=== PATIENT | female | born 1940 | race Caucasian/White ===

== ENCOUNTER 2018-05-18 14:24 | Inpatient (IN) | payer MEDICARE, BC ==
[~2018-05-18] VITALS: Ht 162.6 cm; Wt 59.0 kg
[2018-05-18 16:35] LABS: BASOPHILS % (AUTO) 0.1 % (0-1); EOSINOPHILS % (AUTO) 0 % (0-6); HEMATOCRIT 43.3 % (35.0-45.0); LYMPHOCYTES # (AUTO) 0.2 X10'3 (1.1-4.8); LYMPHOCYTES % (AUTO) 1.4 % (21-51); MEAN CORPUSCULAR HGB CONC 34.6 % (33.0-36.5); MEAN CORPUSCULAR VOLUME 95.4 FL (78-98); MEAN PLATELET VOLUME 7.4 FL (7.4-10.4); MONOCYTES # (AUTO) 0.4 X10'3 (0-0.9); MONOCYTES % (AUTO) 3.6 % (2-12); NEUTROPHILS # (AUTO) 10.3 X10'3 (1.8-7.7); NEUTROPHILS % (AUTO) 94.9 % (42-75); PLATELET COUNT 227 X10'3 (140-440); RED BLOOD COUNT 4.53 X10'6 (4.20-5.60); RED CELL DISTRIBUTION WIDTH 13.3 % (11.5-14.5); WHITE BLOOD COUNT 10.8 X10'3 (4.5-11.0)
[2018-05-18 16:49] LABS: PLATELET ESTIMATE NORMAL; TOTAL CELLS COUNTED 100
[2018-05-18 16:51] LABS: ALANINE AMINOTRANSFERASE 17 U/L (12-78); ALBUMIN 3.4 G/DL (3.4-5.0); ALKALINE PHOSPHATASE 79 IU/L (46-116); ANION GAP 8 (8-16); ASPARTATE AMINO TRANSFERASE 34 U/L (10-37); BLOOD UREA NITROGEN 29 MG/DL (7-18); BUN/CREATININE RATIO 24.4 (6.6-38.0); CALCIUM 8.9 MG/DL (8.5-10.1); CHLORIDE 98 MMOL/L (99-107); CREATININE 1.19 MG/DL (0.40-0.90); GLUCOSE 157 MG/DL (70-104); POTASSIUM 4.1 MMOL/L (3.5-5.1); SODIUM 133 MMOL/L (135-145); TOTAL CARBON DIOXIDE 27.2 MMOL/L (24-32); TOTAL PROTEIN 6.7 G/DL (6.4-8.2); eGFR 44 ML/MIN
[2018-05-18 17:13] LABS: MAGNESIUM 2.8 MG/DL (1.5-2.4)
[2018-05-18] MEDS ORDERED: bisacodyl 10mg suppository rectal RC STA (19:28)
[2018-05-18 20:21] LABS: CLARITY,URINE CLEAR (Clear); COLOR,URINE AMBER (Yellow); GLUCOSE, URINE 100 mg/dl (Neg); KETONES,URINE 15 mg/dl (Neg); LEUKOCYTE ESTERASE ,URINE NEGATIVE (Neg); NITRITES, URINE NEGATIVE (Neg); OCCULT BLOOD,URINE NEGATIVE (Neg); PH,URINE 5.5 (4.8-8.0); PROTEIN,URINE 30 mg/dl (Neg); UROBILINOGEN,URINE 0.2 E.U/dL (0.2-1.0)
[2018-05-18 20:27] LABS: UA COLLECTION TYPE STRAIGHT CATH
[2018-05-18 20:44] LABS: BACTERIA,URINE NONE SEEN /HPF (Neg); HYALINE CASTS 0-3 /LPF (NEGATIVE); MUCUS STRANDS MANY /LPF (Neg); RBC,URINE 0-2 /HPF (0-2); SQUAMOUS EPITHELIAL CELL,UR FEW /LPF (FEW); WBC,URINE 0-4 /HPF (0-4)
[2018-05-18] MEDS ORDERED: temazepam 15mg capsule PO PRN (21:00)
[2018-05-18] MEDS ORDERED: acetaminophen 325mg tablet PO PRN ×2 (21:40)
[2018-05-18] MEDS ORDERED: mag hydrox/Alum hydrox/simeth 30ml oral suspension PO PRN (21:40)
[2018-05-18] MEDS ORDERED: magnesium hydroxide 30ml (MOM) UD suspension PO PRN (21:40)
[2018-05-18] MEDS ORDERED: ondansetron/PF 4mg/2ml inj IV PRN (21:40)
[2018-05-18] MEDS ORDERED: HYDROcodone/acetaminophen 10/325mg tab PO PRN (21:40)
[2018-05-18] MEDS ORDERED: HYDROcodone/acetaminophen 5mg/325mg tablet PO PRN (21:40)
[2018-05-18] MEDS: enoxaparin 40mg/0.4ml syringe SUBCUT SCH (22:32)
[2018-05-18] MEDS: normal saline 1000ml 1,000 ML IV SCH (22:33)
[2018-05-18] MEDS: piperacillin/tazo 3.375gm/50ml 50 ML IV SCH (22:34)
[2018-05-18] MEDS ORDERED: CARB1TAB23 PO ×3 (22:54→23:04)
[2018-05-18] MEDS ORDERED: ENTA200T23 PO (22:54)
[2018-05-18] MEDS ORDERED: CALC-854 PO (23:04)
[2018-05-18] MEDS ORDERED: BISA-155 PO (23:04)
[2018-05-18] MEDS ORDERED: CYAN-19 PO (23:04)
[2018-05-18] MEDS ORDERED: POLY17PO10 PO (23:04)
[2018-05-19] VITALS (16 sets, daily range): BP systolic 114–158; BP diastolic 63–92
[2018-05-19] MEDS: diatr meglu/diatrizoate 30ml oral sol.-(3 dose) bottle PO SCH ×3 (00:39→08:43)
[2018-05-19] MEDS: carbidoba-levodopa 25-100mg tablet PO SCH ×6 (03:33→21:00)
[2018-05-19] MEDS: piperacillin/tazo 3.375gm/50ml 50 ML IV SCH ×3 (05:07→16:00)
[2018-05-19 06:01] LABS: BASOPHILS % (AUTO) 0.1 % (0-1); EOSINOPHILS % (AUTO) 0 % (0-6); HEMATOCRIT 42.2 % (35.0-45.0); HEMOGLOBIN 14.4 g/dl (12.0-16.0); LYMPHOCYTES # (AUTO) 0.4 X10'3 (1.1-4.8); LYMPHOCYTES % (AUTO) 2.9 % (21-51); MEAN CORPUSCULAR HEMOGLOBIN 32.6 PG (27.0-31.0); MEAN CORPUSCULAR HGB CONC 34.2 % (33.0-36.5); MEAN CORPUSCULAR VOLUME 95.6 FL (78-98); MEAN PLATELET VOLUME 8.7 FL (7.4-10.4); MONOCYTES # (AUTO) 0.6 X10'3 (0-0.9); MONOCYTES % (AUTO) 4.6 % (2-12); NEUTROPHILS # (AUTO) 12.5 X10'3 (1.8-7.7); NEUTROPHILS % (AUTO) 92.4 % (42-75); PLATELET COUNT 221 X10'3 (140-440); RED BLOOD COUNT 4.41 X10'6 (4.20-5.60); RED CELL DISTRIBUTION WIDTH 13.5 % (11.5-14.5); WHITE BLOOD COUNT 13.6 X10'3 (4.5-11.0)
[2018-05-19 06:19] LABS: ANION GAP 7 (8-16); BLOOD UREA NITROGEN 33 MG/DL (7-18); BUN/CREATININE RATIO 27.3 (6.6-38.0); CALCIUM 8.7 MG/DL (8.5-10.1); CHLORIDE 98 MMOL/L (99-107); CREATININE 1.21 MG/DL (0.40-0.90); GLUCOSE 110 MG/DL (70-104); POTASSIUM 4.4 MMOL/L (3.5-5.1); SODIUM 133 MMOL/L (135-145); TOTAL CARBON DIOXIDE 27.7 MMOL/L (24-32); eGFR 43 ML/MIN
[2018-05-19] MEDS ORDERED: diatr meglu/diatrizoate 30ml oral sol.-(3 dose) bottle PO SCH (07:00)
[2018-05-19] MEDS: enoxaparin 40mg/0.4ml syringe SUBCUT SCH (07:51)
[2018-05-19 09:38] LABS: PLATELET ESTIMATE NORMAL; TOTAL CELLS COUNTED 100; TOXIC GRANULATION 1+
[2018-05-19] MEDS: normal saline 1000ml 1,000 ML IV SCH (10:57)
[2018-05-19 14:07] LABS: INR 1.2 INR; PARTIAL THROMBOPLASTIN TIME 38 SECONDS (22-32); PROTHROMBIN TIME 12.1 SECONDS (9.0-12.0)
[2018-05-19] MEDS ORDERED: sevoflurane 250ml liquid IH ONE (16:32)
[2018-05-19] MEDS ORDERED: propofol inj 20 ML IV ONE (16:33)
[2018-05-19] MEDS ORDERED: fentaNYL /PF 50mcg/ml 5ml ampule ONE (16:33)
[2018-05-19] MEDS ORDERED: rocuronium 10mg/ml inj IV ONE (16:34)
[2018-05-19] MEDS ORDERED: ROPIVAcaine 0.5% (5mg/ml) 30ml vial ONE (17:04)
[2018-05-19] MEDS ORDERED: neostigmine methylsulfate 1 MG/ML 10ml vial ONE (17:56)
[2018-05-19] MEDS ORDERED: glycopyrrolate 0.2mg/ml inj ONE (17:56)
[2018-05-19] MEDS ORDERED: meperidine/PF 25mg/ml syringe IV PRN ×3 (18:05)
[2018-05-19] MEDS ORDERED: ringers solution, lacted 1,000 ML IV SCH (18:05)
[2018-05-19] MEDS ORDERED: morphine 4 MG/ML inj SYRINge IV PRN ×2 (18:05)
[2018-05-19] MEDS ORDERED: ondansetron/PF 4mg/2ml inj IV PRN (18:05)
[2018-05-19] MEDS ORDERED: proCHLORperazine 10 MG/2 ml inj IV PRN (18:05)
[2018-05-19] MEDS ORDERED: CADD PCA waste documentation MC PRN (18:20)
[2018-05-19] MEDS ORDERED: naloxone 0.4 mg/ml inj IV PRN (18:20)
[2018-05-19] MEDS: HYDROmorphone/NS 1 mg/ml CADD 50 ML IV SCH ×4 (19:00→23:00)
[2018-05-19] MEDS: lactobacillus rhamnosus 10,000 MMU CELLS/CAPSULE PO SCH (20:00)
[2018-05-19] MEDS: heparin, porcine 5000 units/ml vial SQ SCH (21:15)
[2018-05-20] VITALS (8 sets, daily range): BP systolic 102–123; BP diastolic 62–82
[2018-05-20] MEDS: piperacillin/tazo 3.375gm/50ml 50 ML IV SCH ×4 (00:39→23:56)
[2018-05-20] MEDS: normal saline 1000ml 1,000 ML IV SCH ×4 (00:46→16:41)
[2018-05-20] MEDS: HYDROmorphone/NS 1 mg/ml CADD 50 ML IV SCH ×12 (01:00→23:00)
[2018-05-20] MEDS: carbidoba-levodopa 25-100mg tablet PO SCH ×9 (03:00→23:56)
[2018-05-20 05:18] LABS: BASOPHILS % (AUTO) 0 % (0-1); EOSINOPHILS % (AUTO) 0.1 % (0-6); HEMATOCRIT 43.9 % (35.0-45.0); HEMOGLOBIN 14.9 g/dl (12.0-16.0); LYMPHOCYTES # (AUTO) 0.3 X10'3 (1.1-4.8); LYMPHOCYTES % (AUTO) 7.5 % (21-51); MEAN CORPUSCULAR HEMOGLOBIN 32.6 PG (27.0-31.0); MEAN CORPUSCULAR HGB CONC 33.9 % (33.0-36.5); MEAN CORPUSCULAR VOLUME 96.4 FL (78-98); MEAN PLATELET VOLUME 8.4 FL (7.4-10.4); MONOCYTES # (AUTO) 0.2 X10'3 (0-0.9); NEUTROPHILS # (AUTO) 3.7 X10'3 (1.8-7.7); NEUTROPHILS % (AUTO) 88.4 % (42-75); PLATELET COUNT 198 X10'3 (140-440); RED BLOOD COUNT 4.56 X10'6 (4.20-5.60); RED CELL DISTRIBUTION WIDTH 13.6 % (11.5-14.5); WHITE BLOOD COUNT 4.2 X10'3 (4.5-11.0)
[2018-05-20 05:47] LABS: ALBUMIN 2.1 G/DL (3.4-5.0); ANION GAP 8 (8-16); BLOOD UREA NITROGEN 40 MG/DL (7-18); BUN/CREATININE RATIO 27.2 (6.6-38.0); CALCIUM 8.2 MG/DL (8.5-10.1); CHLORIDE 99 MMOL/L (99-107); CREATININE 1.47 MG/DL (0.40-0.90); GLUCOSE 116 MG/DL (70-104); POTASSIUM 4.7 MMOL/L (3.5-5.1); SODIUM 134 MMOL/L (135-145); TOTAL CARBON DIOXIDE 26.6 MMOL/L (24-32); eGFR 35 ML/MIN
[2018-05-20] MEDS ORDERED: potassium Cl 20 mEq SR tablet PO PRN (08:40)
[2018-05-20] MEDS ORDERED: magnesium 4gm in 100ml NS 100 ML IV PRN (08:40)
[2018-05-20] MEDS ORDERED: albuterol 1.25 MG/3 ML (1/2 strength) nebule NEB PRN (08:40)
[2018-05-20] MEDS ORDERED: potassium Cl 40MEQ/NS 500ml 500 ML IV PRN ×2 (08:40)
[2018-05-20] MEDS ORDERED: magnesium 1gm/100ml D5W IVPB 100 ML IV PRN (08:40)
[2018-05-20] MEDS ORDERED: magnesium Cl slow-release 64mg tablet PO PRN (08:40)
[2018-05-20] MEDS ORDERED: normal saline 500ml IV soln 500 ML IV ONE (08:55)
[2018-05-20] MEDS: lactobacillus rhamnosus 10,000 MMU CELLS/CAPSULE PO SCH ×2 (09:03→20:17)
[2018-05-20] MEDS: heparin, porcine 5000 units/ml vial SQ SCH ×2 (09:04→20:17)
[2018-05-20] MEDS ORDERED: normal saline 1000ml 1,000 ML IV ONE (14:55)
[2018-05-20] MEDS ORDERED: temazepam 15mg capsule PO PRN (21:00)
[2018-05-21] VITALS: BP 120/68
[2018-05-21] MEDS: HYDROmorphone/NS 1 mg/ml CADD 50 ML IV SCH ×12 (01:00→23:00)
[2018-05-21] MEDS: normal saline 1000ml 1,000 ML IV SCH ×2 (01:51→03:31)
[2018-05-21] MEDS: carbidoba-levodopa 25-100mg tablet PO SCH ×6 (03:30→19:12)
[2018-05-21 04:55] LABS: BASOPHILS % (AUTO) 0.5 % (0-1); EOSINOPHILS # (AUTO) 0.1 X10'3 (0-0.9); HEMATOCRIT 35.9 % (35.0-45.0); HEMOGLOBIN 12.1 g/dl (12.0-16.0); LYMPHOCYTES # (AUTO) 0.4 X10'3 (1.1-4.8); LYMPHOCYTES % (AUTO) 9.1 % (21-51); MEAN CORPUSCULAR HEMOGLOBIN 32.5 PG (27.0-31.0); MEAN CORPUSCULAR HGB CONC 33.8 % (33.0-36.5); MEAN CORPUSCULAR VOLUME 96.3 FL (78-98); MEAN PLATELET VOLUME 7.8 FL (7.4-10.4); MONOCYTES # (AUTO) 0.3 X10'3 (0-0.9); NEUTROPHILS # (AUTO) 3.4 X10'3 (1.8-7.7); NEUTROPHILS % (AUTO) 80.4 % (42-75); PLATELET COUNT 183 X10'3 (140-440); RED BLOOD COUNT 3.73 X10'6 (4.20-5.60); RED CELL DISTRIBUTION WIDTH 13.9 % (11.5-14.5); WHITE BLOOD COUNT 4.2 X10'3 (4.5-11.0)
[2018-05-21 05:16] LABS: ANION GAP 8 (8-16); BLOOD UREA NITROGEN 38 MG/DL (7-18); BUN/CREATININE RATIO 27.7 (6.6-38.0); CALCIUM 8.1 MG/DL (8.5-10.1); CHLORIDE 103 MMOL/L (99-107); CREATININE 1.37 MG/DL (0.40-0.90); GLUCOSE 81 MG/DL (70-104); MAGNESIUM 2.6 MG/DL (1.5-2.4); POTASSIUM 3.6 MMOL/L (3.5-5.1); SODIUM 138 MMOL/L (135-145); TOTAL CARBON DIOXIDE 27.5 MMOL/L (24-32); eGFR 37 ML/MIN
[2018-05-21 07:16] VITALS: BP 125/68
[2018-05-21] MEDS: K and/or MAG REPLACEMENT MC SCH (07:46)
[2018-05-21] MEDS: heparin, porcine 5000 units/ml vial SQ SCH ×2 (08:01→19:13)
[2018-05-21] MEDS: piperacillin/tazo 3.375gm/50ml 50 ML IV SCH ×2 (08:01→16:11)
[2018-05-21] MEDS: lactobacillus rhamnosus 10,000 MMU CELLS/CAPSULE PO SCH ×2 (08:01→19:12)
[2018-05-21] MEDS ORDERED: bisacodyl 5mg tablet.DR PO PRN (08:10)
[2018-05-21] MEDS: sodium chloride 0.45% 1,000 ML IV SCH ×3 (08:13→20:22)
[2018-05-21] MEDS: calcium carbonate/vitamin D3 tablet PO SCH ×2 (08:21→19:13)
[2018-05-21] MEDS: cyanocobalamin 500mcg tablet PO SCH (08:22)
[2018-05-21 11:30] VITALS: BP 129/69
[2018-05-21 20:00] VITALS: BP 135/76
[2018-05-22] VITALS: BP 134/78
[2018-05-22] MEDS: carbidoba-levodopa 25-100mg tablet PO SCH ×7 (00:03→23:18)
[2018-05-22] MEDS: piperacillin/tazo 3.375gm/50ml 50 ML IV SCH ×3 (00:05→15:52)
[2018-05-22] MEDS: HYDROmorphone/NS 1 mg/ml CADD 50 ML IV SCH ×12 (01:00→23:00)
[2018-05-22 05:15] LABS: BASOPHILS % (AUTO) 0.1 % (0-1); EOSINOPHILS # (AUTO) 0.1 X10'3 (0-0.9); HEMATOCRIT 31.1 % (35.0-45.0); HEMOGLOBIN 10.5 g/dl (12.0-16.0); LYMPHOCYTES # (AUTO) 0.4 X10'3 (1.1-4.8); LYMPHOCYTES % (AUTO) 9.1 % (21-51); MEAN CORPUSCULAR HEMOGLOBIN 32.4 PG (27.0-31.0); MEAN CORPUSCULAR HGB CONC 33.9 % (33.0-36.5); MEAN CORPUSCULAR VOLUME 95.5 FL (78-98); MEAN PLATELET VOLUME 7.5 FL (7.4-10.4); MONOCYTES # (AUTO) 0.4 X10'3 (0-0.9); MONOCYTES % (AUTO) 9.6 % (2-12); NEUTROPHILS # (AUTO) 3.4 X10'3 (1.8-7.7); NEUTROPHILS % (AUTO) 79.2 % (42-75); PLATELET COUNT 163 X10'3 (140-440); RED BLOOD COUNT 3.25 X10'6 (4.20-5.60); RED CELL DISTRIBUTION WIDTH 13.2 % (11.5-14.5); WHITE BLOOD COUNT 4.2 X10'3 (4.5-11.0)
[2018-05-22 05:38] LABS: ALBUMIN 1.8 G/DL (3.4-5.0); ANION GAP 8 (8-16); BLOOD UREA NITROGEN 25 MG/DL (7-18); BUN/CREATININE RATIO 23.4 (6.6-38.0); CALCIUM 7.7 MG/DL (8.5-10.1); CHLORIDE 103 MMOL/L (99-107); CREATININE 1.07 MG/DL (0.40-0.90); GLUCOSE 100 MG/DL (70-104); MAGNESIUM 2.1 MG/DL (1.5-2.4); POTASSIUM 3.4 MMOL/L (3.5-5.1); SODIUM 138 MMOL/L (135-145); TOTAL CARBON DIOXIDE 27.2 MMOL/L (24-32); eGFR 50 ML/MIN
[2018-05-22 07:00] VITALS: BP 113/56
[2018-05-22] MEDS: cyanocobalamin 500mcg tablet PO SCH (07:27)
[2018-05-22] MEDS: lactobacillus rhamnosus 10,000 MMU CELLS/CAPSULE PO SCH ×2 (07:28→19:12)
[2018-05-22] MEDS: heparin, porcine 5000 units/ml vial SQ SCH ×2 (07:29→19:13)
[2018-05-22] MEDS: calcium carbonate/vitamin D3 tablet PO SCH ×2 (07:29→19:12)
[2018-05-22] MEDS: sodium chloride 0.45% 1,000 ML IV SCH ×2 (07:30→19:11)
[2018-05-22] MEDS: potassium Cl 20 mEq SR tablet PO PRN ×3 (07:30→15:51)
[2018-05-22] MEDS ORDERED: magnesium hydroxide 30ml (MOM) UD suspension PO ONE (07:50)
[2018-05-22] MEDS: K and/or MAG REPLACEMENT MC SCH (08:00)
[2018-05-22 11:00] VITALS: BP_SYST 123; BP_SYST 131; BP_DIAS 67; BP_DIAS 75
[2018-05-22 20:00] VITALS: BP 121/68
[2018-05-23] VITALS: BP 137/71
[2018-05-23] MEDS: piperacillin/tazo 3.375gm/50ml 50 ML IV SCH ×4 (00:23→23:05)
[2018-05-23] MEDS: HYDROmorphone/NS 1 mg/ml CADD 50 ML IV SCH ×10 (01:00→19:00)
[2018-05-23] MEDS: carbidoba-levodopa 25-100mg tablet PO SCH ×6 (03:07→23:05)
[2018-05-23 05:25] LABS: BASOPHILS % (AUTO) 0.3 % (0-1); EOSINOPHILS # (AUTO) 0.1 X10'3 (0-0.9); EOSINOPHILS % (AUTO) 2.6 % (0-6); HEMATOCRIT 31.1 % (35.0-45.0); HEMOGLOBIN 10.6 g/dl (12.0-16.0); LYMPHOCYTES # (AUTO) 0.5 X10'3 (1.1-4.8); LYMPHOCYTES % (AUTO) 14.4 % (21-51); MEAN CORPUSCULAR HEMOGLOBIN 32.6 PG (27.0-31.0); MEAN CORPUSCULAR VOLUME 95.9 FL (78-98); MEAN PLATELET VOLUME 7.7 FL (7.4-10.4); MONOCYTES # (AUTO) 0.4 X10'3 (0-0.9); MONOCYTES % (AUTO) 12.6 % (2-12); NEUTROPHILS # (AUTO) 2.4 X10'3 (1.8-7.7); NEUTROPHILS % (AUTO) 70.1 % (42-75); PLATELET COUNT 164 X10'3 (140-440); RED BLOOD COUNT 3.24 X10'6 (4.20-5.60); RED CELL DISTRIBUTION WIDTH 13.3 % (11.5-14.5); WHITE BLOOD COUNT 3.5 X10'3 (4.5-11.0)
[2018-05-23 05:50] LABS: ALBUMIN 1.8 G/DL (3.4-5.0); ANION GAP 7 (8-16); BLOOD UREA NITROGEN 17 MG/DL (7-18); CHLORIDE 102 MMOL/L (99-107); GLUCOSE 113 MG/DL (70-104); MAGNESIUM 1.8 MG/DL (1.5-2.4); POTASSIUM 4.1 MMOL/L (3.5-5.1); SODIUM 136 MMOL/L (135-145); TOTAL CARBON DIOXIDE 27.5 MMOL/L (24-32); eGFR 54 ML/MIN
[2018-05-23 07:29] VITALS: BP 135/67
[2018-05-23] MEDS: lactobacillus rhamnosus 10,000 MMU CELLS/CAPSULE PO SCH ×2 (07:50→19:33)
[2018-05-23] MEDS: calcium carbonate/vitamin D3 tablet PO SCH ×2 (07:50→19:34)
[2018-05-23] MEDS: cyanocobalamin 500mcg tablet PO SCH (07:51)
[2018-05-23] MEDS: heparin, porcine 5000 units/ml vial SQ SCH ×2 (07:55→19:34)
[2018-05-23] MEDS: K and/or MAG REPLACEMENT MC SCH (08:00)
[2018-05-23] MEDS: sodium chloride 0.45% 1,000 ML IV SCH (09:30)
[2018-05-23 11:00] VITALS: BP 117/63
[2018-05-23 18:00] VITALS: BP 147/75
[2018-05-23] MEDS ORDERED: furosemide 20 MG/2 ML vial IV ONE (19:05)
[2018-05-24] VITALS: BP 117/72
[2018-05-24] MEDS: carbidoba-levodopa 25-100mg tablet PO SCH ×6 (03:06→23:43)
[2018-05-24] MEDS: calcium carbonate/vitamin D3 tablet PO SCH ×2 (07:03→20:01)
[2018-05-24] MEDS: cyanocobalamin 500mcg tablet PO SCH (07:04)
[2018-05-24] MEDS: heparin, porcine 5000 units/ml vial SQ SCH ×2 (07:04→20:02)
[2018-05-24] MEDS: lactobacillus rhamnosus 10,000 MMU CELLS/CAPSULE PO SCH ×2 (07:04→20:01)
[2018-05-24 07:05] VITALS: BP 126/71
[2018-05-24] MEDS: piperacillin/tazo 3.375gm/50ml 50 ML IV SCH ×2 (07:10→16:11)
[2018-05-24] MEDS: K and/or MAG REPLACEMENT MC SCH (08:00)
[2018-05-24] MEDS ORDERED: potassium Cl 40MEQ/NS 500ml 500 ML IV PRN ×2 (08:15)
[2018-05-24] MEDS ORDERED: magnesium 1gm/100ml D5W IVPB 100 ML IV PRN (08:15)
[2018-05-24] MEDS ORDERED: magnesium Cl slow-release 64mg tablet PO PRN (08:15)
[2018-05-24] MEDS ORDERED: potassium Cl 20 mEq SR tablet PO PRN ×2 (08:15)
[2018-05-24] MEDS ORDERED: magnesium 4gm in 100ml NS 100 ML IV PRN (08:15)
[2018-05-24 12:02] VITALS: BP 126/72
[2018-05-24] MEDS ORDERED: magnesium hydroxide 30ml (MOM) UD suspension PO ONE (13:35)
[2018-05-24 18:30] VITALS: BP 135/76
[2018-05-25] VITALS: BP 139/71
[2018-05-25] MEDS: piperacillin/tazo 3.375gm/50ml 50 ML IV SCH (00:03)
[2018-05-25] MEDS: carbidoba-levodopa 25-100mg tablet PO SCH ×6 (02:40→23:03)
[2018-05-25 05:30] LABS: ALBUMIN 1.9 G/DL (3.4-5.0); ANION GAP 4 (8-16); BLOOD UREA NITROGEN 14 MG/DL (7-18); BUN/CREATININE RATIO 12.6 (6.6-38.0); CALCIUM 7.9 MG/DL (8.5-10.1); CHLORIDE 102 MMOL/L (99-107); CREATININE 1.11 MG/DL (0.40-0.90); GLUCOSE 99 MG/DL (70-104); MAGNESIUM 2.4 MG/DL (1.5-2.4); POTASSIUM 4.1 MMOL/L (3.5-5.1); SODIUM 134 MMOL/L (135-145); TOTAL CARBON DIOXIDE 28.4 MMOL/L (24-32); eGFR 48 ML/MIN
[2018-05-25 05:35] LABS: BASOPHILS % (AUTO) 0.2 % (0-1); EOSINOPHILS # (AUTO) 0.3 X10'3 (0-0.9); EOSINOPHILS % (AUTO) 4.2 % (0-6); HEMATOCRIT 34.1 % (35.0-45.0); HEMOGLOBIN 11.9 g/dl (12.0-16.0); LYMPHOCYTES # (AUTO) 0.7 X10'3 (1.1-4.8); LYMPHOCYTES % (AUTO) 11.9 % (21-51); MEAN CORPUSCULAR HEMOGLOBIN 33.4 PG (27.0-31.0); MEAN CORPUSCULAR HGB CONC 34.9 % (33.0-36.5); MEAN CORPUSCULAR VOLUME 95.8 FL (78-98); MONOCYTES # (AUTO) 0.7 X10'3 (0-0.9); NEUTROPHILS # (AUTO) 4.3 X10'3 (1.8-7.7); NEUTROPHILS % (AUTO) 72.7 % (42-75); PLATELET COUNT 217 X10'3 (140-440); RED BLOOD COUNT 3.56 X10'6 (4.20-5.60); RED CELL DISTRIBUTION WIDTH 12.2 % (11.5-14.5)
[2018-05-25] MEDS: lactobacillus rhamnosus 10,000 MMU CELLS/CAPSULE PO SCH ×2 (07:15→19:26)
[2018-05-25] MEDS: cyanocobalamin 500mcg tablet PO SCH (07:15)
[2018-05-25] MEDS: calcium carbonate/vitamin D3 tablet PO SCH ×2 (07:16→19:26)
[2018-05-25] MEDS: heparin, porcine 5000 units/ml vial SQ SCH ×2 (07:16→19:27)
[2018-05-25 08:00] VITALS: BP 102/57
[2018-05-25] MEDS: K and/or MAG REPLACEMENT MC SCH (08:00)
[2018-05-25 11:00] VITALS: BP 100/61
[2018-05-25 20:00] VITALS: BP 117/62
[2018-05-26] VITALS: BP 120/62
[2018-05-26] MEDS: carbidoba-levodopa 25-100mg tablet PO SCH ×3 (03:16→11:04)
[2018-05-26 06:51] LABS: BASOPHILS % (AUTO) 0.2 % (0-1); EOSINOPHILS # (AUTO) 0.2 X10'3 (0-0.9); EOSINOPHILS % (AUTO) 5.5 % (0-6); HEMOGLOBIN 10.6 g/dl (12.0-16.0); LYMPHOCYTES # (AUTO) 0.8 X10'3 (1.1-4.8); LYMPHOCYTES % (AUTO) 21.4 % (21-51); MEAN CORPUSCULAR HGB CONC 34.2 % (33.0-36.5); MEAN CORPUSCULAR VOLUME 96.3 FL (78-98); MEAN PLATELET VOLUME 7.7 FL (7.4-10.4); MONOCYTES # (AUTO) 0.4 X10'3 (0-0.9); MONOCYTES % (AUTO) 10.8 % (2-12); NEUTROPHILS # (AUTO) 2.3 X10'3 (1.8-7.7); NEUTROPHILS % (AUTO) 62.1 % (42-75); PLATELET COUNT 244 X10'3 (140-440); RED BLOOD COUNT 3.22 X10'6 (4.20-5.60); RED CELL DISTRIBUTION WIDTH 12.4 % (11.5-14.5); WHITE BLOOD COUNT 3.7 X10'3 (4.5-11.0)
[2018-05-26 07:01] LABS: ANION GAP 5 (8-16); BLOOD UREA NITROGEN 10 MG/DL (7-18); BUN/CREATININE RATIO 10.9 (6.6-38.0); CALCIUM 8.1 MG/DL (8.5-10.1); CHLORIDE 103 MMOL/L (99-107); CREATININE 0.92 MG/DL (0.40-0.90); GLUCOSE 90 MG/DL (70-104); MAGNESIUM 1.9 MG/DL (1.5-2.4); POTASSIUM 3.9 MMOL/L (3.5-5.1); SODIUM 135 MMOL/L (135-145); TOTAL CARBON DIOXIDE 26.8 MMOL/L (24-32); eGFR 59 ML/MIN
[2018-05-26] MEDS: cyanocobalamin 500mcg tablet PO SCH (07:26)
[2018-05-26] MEDS: calcium carbonate/vitamin D3 tablet PO SCH (07:27)
[2018-05-26] MEDS: heparin, porcine 5000 units/ml vial SQ SCH (07:30)
[2018-05-26] MEDS: K and/or MAG REPLACEMENT MC SCH (07:35)
[2018-05-26] MEDS: lactobacillus rhamnosus 10,000 MMU CELLS/CAPSULE PO SCH (07:38)
[2018-05-26 08:05] VITALS: BP 119/64
[2018-05-26 11:00] VITALS: BP 133/68
== END 2018-05-26 13:05 | DRG 853 ==
LOC: ER 14:25 → ED HOLD 21:37 → SUR 3N 05-19 02:05
PROVIDERS: ADMIT Hospitalist; ATTEND Internal Medicine
PROC: 0D1M0Z4 Bypass Descending Colon to Cutaneous, Open Approach (ICD-10-PCS; 2018-05-19)
PROC: 0DTN0ZZ Resection of Sigmoid Colon, Open Approach (ICD-10-PCS; principal; 2018-05-19 16:32)
DX: A41.9 Sepsis, unspecified organism (principal); K56.2 Volvulus; K46.0 Unspecified abdominal hernia with obstruction, without gangrene; E87.1 Hypo-osmolality and hyponatremia; N17.9 Acute kidney failure, unspecified; K55.9 Vascular disorder of intestine, unspecified; E83.41 Hypermagnesemia; G20 Parkinson's disease; K90.0 Celiac disease; E86.0 Dehydration; M81.0 Age-related osteoporosis without current pathological fracture; R33.9 Retention of urine, unspecified; D72.819 Decreased white blood cell count, unspecified; E83.42 Hypomagnesemia; Z60.2 Problems related to living alone; Z66 Do not resuscitate; Z90.5 Acquired absence of kidney; Z90.710 Acquired absence of both cervix and uterus; Z79.899 Other long term (current) drug therapy
CPT/HCPCS: 36415; 71045; 74018; 74150; 74176; 80048; 80053; 81001; 83605; 83735; 85025; 85610; 85730; 87040; 87070; 88307; 94640; 94760; 99285; A4353; A4421; A6255; A7000; C1758; J1170; J1644; J1650; J1940; J2175; J2405; J2543; J2704; J2710; J2795; J3010; J3490; J7030; J7120; Q9963

== ENCOUNTER 2019-06-27 18:02 | Inpatient (IN) | payer MEDICARE, BC ==
[~2019-06-27] VITALS: Ht 162.6 cm; Wt 64.1 kg
[2019-06-27 18:00] VITALS: BP 98/58
[~2019-06-27 18:02] MED LIST: BISA-155 PO; CALC-854 PO; CARB1TAB23 PO; CYAN100019 PO; ENTA200T23 PO; POLY17PO10 PO
[2019-06-27] MEDS ORDERED: morphine 2 MG/ML inj. syringe IV PRN (19:00)
[2019-06-27] MEDS ORDERED: acetaminophen 325mg tablet PO PRN (19:00)
[2019-06-27] MEDS ORDERED: mag hydrox/Alum hydrox/simeth 30ml oral suspension PO PRN (19:00)
[2019-06-27] MEDS ORDERED: ondansetron/PF 4mg/2ml inj IV PRN (19:00)
[2019-06-27] MEDS ORDERED: magnesium hydroxide 30ml (MOM) UD suspension PO PRN (19:00)
[2019-06-27] MEDS: heparin, porcine 5000 units/ml vial SQ SCH (21:47)
[2019-06-27] MEDS: potassium Cl 20mEq in NS 1,000 ML IV SCH (21:47)
[2019-06-28] VITALS (18 sets, daily range): BP systolic 98–177; BP diastolic 46–87
[2019-06-28] MEDS: potassium Cl 20mEq in NS 1,000 ML IV SCH ×3 (04:57→16:33)
[2019-06-28 05:42] LABS: EOSINOPHILS # (AUTO) 0.1 X10'3 (0-0.9); EOSINOPHILS % (AUTO) 3.7 % (0-6); HEMATOCRIT 38.3 % (35.0-45.0); HEMOGLOBIN 12.7 g/dl (12.0-16.0); LYMPHOCYTES # (AUTO) 0.6 X10'3 (1.1-4.8); LYMPHOCYTES % (AUTO) 18.4 % (21-51); MEAN CORPUSCULAR HEMOGLOBIN 32.2 PG (27.0-31.0); MEAN CORPUSCULAR HGB CONC 33.2 g/dL (33.0-36.5); MEAN CORPUSCULAR VOLUME 96.9 FL (78-98); MEAN PLATELET VOLUME 7.8 FL (7.4-10.4); MONOCYTES # (AUTO) 0.4 X10'3 (0-0.9); MONOCYTES % (AUTO) 11.3 % (2-12); NEUTROPHILS # (AUTO) 2.1 X10'3 (1.8-7.7); NEUTROPHILS % (AUTO) 65.6 % (42-75); PLATELET COUNT 262 X10'3 (140-440); RED BLOOD COUNT 3.95 X10'6 (4.20-5.60); RED CELL DISTRIBUTION WIDTH 13.8 % (11.5-14.5); WHITE BLOOD COUNT 3.3 X10'3 (4.5-11.0)
[2019-06-28 05:54] LABS: ALBUMIN 2.8 G/DL (3.4-5.0); ANION GAP 10 (8-16); BLOOD UREA NITROGEN 12 MG/DL (7-18); BUN/CREATININE RATIO 15.2 (6.6-38.0); CALCIUM 8.1 MG/DL (8.5-10.1); CHLORIDE 101 MMOL/L (99-107); CREATININE 0.79 MG/DL (0.40-0.90); GLUCOSE 91 MG/DL (70-104); POTASSIUM 3.7 MMOL/L (3.5-5.1); SODIUM 136 MMOL/L (135-145); eGFR 71 ML/MIN
--- NOTE | 2019-06-28 06:30 | NUR ---
Problems reprioritized. Patient report given, questions answered & plan of care reviewed with Eladio MALAVE.
--- NOTE | 2019-06-28 06:37 | NUR ---
Patient in room [facility]. I have received report from Page MALAVE and had the opportunity to ask questions and assume patient care.
[2019-06-28] MEDS: heparin, porcine 5000 units/ml vial SQ SCH ×2 (08:00→19:53)
[2019-06-28] MEDS ORDERED: BUPIVAcaine/PF 2.5 mg/ml (0.25%) 30ml vial ONE (08:15)
[2019-06-28] MEDS ORDERED: LIDOcaine 1% 30ml preserv. free vial ONE (08:15)
[2019-06-28 08:25] LABS: PARTIAL THROMBOPLASTIN TIME 29 SECONDS (22-32)
[2019-06-28] MEDS: carbidoba-levodopa 25-100mg tablet PO SCH ×5 (08:28→23:10)
--- NOTE | 2019-06-28 08:36 | NUR ---
Sinemet given with sips of water per Dr. Parsons instruction
--- NOTE | 2019-06-28 08:40 | NUR ---
Report given to the OR charge nurse over the phone
[2019-06-28] MEDS ORDERED: sevoflurane 250ml liquid IH ONE (09:06)
[2019-06-28] MEDS ORDERED: fentaNYL/PF 50MCG/1 ML 2ML syringe ONE ×2 (09:10→09:49)
[2019-06-28] MEDS ORDERED: ceFOXitin 2 GM ADDVANTGE BAG 50 ML IV ONE (09:11)
[2019-06-28] MEDS ORDERED: ketamine 50mg/5ml syringe ONE (09:38)
[2019-06-28] MEDS ORDERED: glycopyrrolate 0.2mg/ml inj ONE (09:51)
[2019-06-28] MEDS ORDERED: dexamethasone sod phosphate 4mg/ml inj. ONE (09:51)
[2019-06-28] MEDS ORDERED: neostigmine methylsulfate 1 MG/ML 10ml vial ONE (09:51)
[2019-06-28] MEDS ORDERED: ondansetron/PF 4mg/2ml inj ONE (09:51)
[2019-06-28] MEDS ORDERED: propofol inj 20 ML IV ONE (09:51)
[2019-06-28] MEDS ORDERED: LIDOcaine 2% (20mg/ml) 5ml vial ONE (09:51)
[2019-06-28] MEDS ORDERED: rocuronium 10mg/ml inj IV ONE (09:51)
[2019-06-28] MEDS ORDERED: ringers solution, lacted 1,000 ML IV SCH (10:19)
[2019-06-28] MEDS ORDERED: morphine 4 MG/ML inj SYRINge IV PRN (10:20)
[2019-06-28] MEDS ORDERED: ondansetron/PF 4mg/2ml inj IV PRN (10:20)
[2019-06-28] MEDS ORDERED: HYDROmorphone inj. 0.5 MG/0.5 ML DISP.SYRIN IV PRN (10:20)
[2019-06-28] MEDS ORDERED: ROPIVAcaine 0.5% (5mg/ml) 30ml vial ONE (10:49)
--- NOTE | 2019-06-28 11:30 | NUR ---
Received from OR via BED , accompanied by Anesthesiologist DR WILLIAM and report given by Anesthesiolgist. PATIENT WAKING UP, NO S/S OF PAIN, V/S WNL, NEUROVASCULAR CHECKS INTACT. PIV 20G TO LUE , SCD ON, DRESSING TO MIDLINE ABDOMEN CDI AND COLOSTOMY WITH SCANT OUT PUT AND PINK STOMA CDI. VICTOR DRAINING CLEAR YELLOW URINE
[2019-06-28] MEDS ORDERED: naloxone 0.4 mg/ml inj IV PRN (11:35)
[2019-06-28] MEDS ORDERED: CADD PCA waste documentation MC PRN (11:35)
[2019-06-28] MEDS ORDERED: hydrALAZINE 20mg/ml inj. IV ONE ×2 (11:43→11:45)
[2019-06-28 12:01] LABS: ISTAT CREATININE 0.8 mg/dL (0.6-1.1); ISTAT HGB 14.3 g/dl (12.0-16.0); ISTAT IONIZED CALCIUM 1.01 mmol/L (1.03-1.32); ISTAT K 3.9 mmol/L (3.5-5.1); POC BUN/CREATININE RATIO 11.3 (6.6-38.0)
[2019-06-28] MEDS: morphine/NS 5 mg/ml CADD 50 ML IV SCH ×7 (12:12→23:00)
--- NOTE | 2019-06-28 12:30 | NUR ---
PATIENT SLEEPY BUT ORIENTED, C/O 4/10 PAIN, GERONTOLOGICAL NURSE PRACTITIONER STARTED AND DOSE GIVEN, V/S WNL, NEUROVASCULAR CHECKS INTACT. PIV 20G TO LUE , SCD ON, DRESSING TO MIDLINE ABDOMEN CDI AND COLOSTOMY WITH SCANT OUT PUT AND PINK STOMA CDI. VICTOR DRAINING CLEAR YELLOW URINE, PATIENT TAKEN TO SURGICAL WITH ALL BELONGINGS AND REPORT GIVEN TO RN WHO HAS TAKEN OVER PATIENT CARE.
--- NOTE | 2019-06-28 12:53 | NUR ---
Patient just arrived to her room from PACU. Patient very sleepy able to answer questions when I was talking to her. Patient came back with the Morphine CADD and a alston catheter. Midline incision noted dry and intact. New colostomy bag intact. Patient educated about the use of SOLAR SALES ADVISOR. Patient hooked to vital signs machine to monitor postop vitals
--- NOTE | 2019-06-28 13:05 | NUR ---
Encouraged deep breathing, breathing shallow about 12/min. O2 sat 97% at 2lpm/nc. Will not introduce any oral fluid or oral meds at this time as patient still very drowsy
--- NOTE | 2019-06-28 15:14 | NUR ---
Malnutrition consult: Pt admit w/ megacolon hx Parkinson's, constipation w/ colectomy and colostomy, and recent parastomal hernia repair. Maximum medical management unable to regain colon function per MD note; s/p OR for ileostomy and complete colectomy per MD note. Severe distention from cecum to proximal descending colon; terminal ileum divided proximal to ileocecal valve per MD note. Pt advanced to clear liquids post-op pending PO. Will need ileostomy ed once stable post-op. At this time pt has no edema, no significant wt loss hx, no severe weakness, and does not meet minimum malnutrition criteria at this time. Will continue to monitor. Rec: 1. advance diet per MD to low-residue 2. monitor for ONS needs as diet advances 3. ileostomy ed once stable post-op prior to d/c 4. MVI for wounds per MD approval 5. wt per rx Addendum: 06/28/19 at [address] Amended: Links added.
--- NOTE | 2019-06-28 15:17 | NUR ---
Dr. Parsons was notified that patient's breathing was shallow 10-12/minute but the rest of the vitals are within the normal limits. I also let him know that patient still drowsy at this time so I have not introduce any liquid to drink or any PO meds yet until patient is more awake.
[2019-06-28] MEDS ORDERED: ceFOXitin 1 GM/D5W 50mL IVPB 1,000 GM in normal saline 100ml IV soln 100 ML IV SCH (16:00)
[2019-06-28] MEDS: ceFOXitin 1 GM/D5W 50mL IVPB 50 ML IV SCH (16:32)
--- NOTE | 2019-06-28 18:13 | NUR ---
Patient in room [facility]. I have received report from FRIEDA Hendricks and had the opportunity to ask questions and assume patient care.
--- NOTE | 2019-06-28 18:28 | NUR ---
Problems reprioritized. Patient report given, questions answered & plan of care reviewed with Junior MALAVE.
[2019-06-29] VITALS: BP 91/58
[2019-06-29] MEDS: ceFOXitin 1 GM/D5W 50mL IVPB 50 ML IV SCH (00:28)
[2019-06-29] MEDS: morphine/NS 5 mg/ml CADD 50 ML IV SCH ×12 (01:00→23:00)
[2019-06-29] MEDS: carbidoba-levodopa 25-100mg tablet PO SCH ×6 (03:19→23:12)
[2019-06-29] MEDS: potassium Cl 20mEq in NS 1,000 ML IV SCH ×2 (03:19→15:19)
[2019-06-29 04:00] VITALS: BP 102/50
--- NOTE | 2019-06-29 06:31 | NUR ---
Problems reprioritized. Patient report given, questions answered & plan of care reviewed with FRIEDA Saini.
--- NOTE | 2019-06-29 06:35 | NUR ---
Patient in room [facility]. I have received report from FRIEDA CISNEROS and had the opportunity to ask questions and assume patient care.
[2019-06-29 06:39] LABS: ALBUMIN 2.1 G/DL (3.4-5.0); ANION GAP 9 (8-16); BLOOD UREA NITROGEN 14 MG/DL (7-18); BUN/CREATININE RATIO 15.9 (6.6-38.0); CALCIUM 8.2 MG/DL (8.5-10.1); CHLORIDE 107 MMOL/L (99-107); CREATININE 0.88 MG/DL (0.40-0.90); GLUCOSE 110 MG/DL (70-104); POTASSIUM 4.9 MMOL/L (3.5-5.1); SODIUM 138 MMOL/L (135-145); TOTAL CARBON DIOXIDE 22.4 MMOL/L (24-32); eGFR 62 ML/MIN
[2019-06-29 06:47] LABS: BASOPHILS % (AUTO) 0.1 % (0-1); EOSINOPHILS % (AUTO) 0.2 % (0-6); HEMATOCRIT 39.1 % (35.0-45.0); HEMOGLOBIN 13.1 g/dl (12.0-16.0); LYMPHOCYTES # (AUTO) 0.6 X10'3 (1.1-4.8); LYMPHOCYTES % (AUTO) 10.6 % (21-51); MEAN CORPUSCULAR HEMOGLOBIN 32.5 PG (27.0-31.0); MEAN CORPUSCULAR HGB CONC 33.6 g/dL (33.0-36.5); MEAN CORPUSCULAR VOLUME 96.6 FL (78-98); MEAN PLATELET VOLUME 8.1 FL (7.4-10.4); MONOCYTES # (AUTO) 0.5 X10'3 (0-0.9); MONOCYTES % (AUTO) 8.6 % (2-12); NEUTROPHILS # (AUTO) 4.6 X10'3 (1.8-7.7); NEUTROPHILS % (AUTO) 80.5 % (42-75); PLATELET COUNT 276 X10'3 (140-440); RED BLOOD COUNT 4.04 X10'6 (4.20-5.60); RED CELL DISTRIBUTION WIDTH 14.3 % (11.5-14.5); WHITE BLOOD COUNT 5.7 X10'3 (4.5-11.0)
[2019-06-29] MEDS: heparin, porcine 5000 units/ml vial SQ SCH ×2 (07:52→19:15)
[2019-06-29 08:00] VITALS: BP 112/50
[2019-06-29 11:44] VITALS: BP 121/58
--- NOTE | 2019-06-29 15:10 | NUR ---
F/u: Pt seen by MARIANA for written/verbal Ileostomy ed w/ RD contact information provided. MARIANA reviewed hydration and proper food choices regarding preventing blockages and thickening output on high output days. Pt declined further in-depth ileostomy ed. MARIANA encouraged pt to contact MARIANA this admit or after d/c if further questions. Will continue to monitor. Addendum: 06/29/19 at [address] Amended: Links added.
[2019-06-29 18:00] VITALS: BP 116/57
--- NOTE | 2019-06-29 18:20 | NUR ---
Patient in room [facility]. I have received report from FRIEDA Saini and had the opportunity to ask questions and assume patient care.
--- NOTE | 2019-06-29 18:51 | NUR ---
Problems reprioritized. Patient report given, questions answered & plan of care reviewed with FRIEDA CISNEROS.
[2019-06-30 00:01] VITALS: BP 122/88
[2019-06-30] MEDS: morphine/NS 5 mg/ml CADD 50 ML IV SCH ×8 (01:00→15:00)
[2019-06-30] MEDS: carbidoba-levodopa 25-100mg tablet PO SCH ×6 (03:14→23:49)
[2019-06-30 05:01] LABS: BASOPHILS % (AUTO) 0.3 % (0-1); EOSINOPHILS # (AUTO) 0.1 X10'3 (0-0.9); EOSINOPHILS % (AUTO) 1.8 % (0-6); HEMATOCRIT 33.1 % (35.0-45.0); HEMOGLOBIN 11.1 g/dl (12.0-16.0); LYMPHOCYTES # (AUTO) 0.6 X10'3 (1.1-4.8); MEAN CORPUSCULAR HEMOGLOBIN 32.4 PG (27.0-31.0); MEAN CORPUSCULAR HGB CONC 33.7 g/dL (33.0-36.5); MEAN CORPUSCULAR VOLUME 96.2 FL (78-98); MEAN PLATELET VOLUME 7.9 FL (7.4-10.4); MONOCYTES # (AUTO) 0.4 X10'3 (0-0.9); MONOCYTES % (AUTO) 7.4 % (2-12); NEUTROPHILS # (AUTO) 4.8 X10'3 (1.8-7.7); NEUTROPHILS % (AUTO) 80.5 % (42-75); PLATELET COUNT 238 X10'3 (140-440); RED BLOOD COUNT 3.44 X10'6 (4.20-5.60); RED CELL DISTRIBUTION WIDTH 14.1 % (11.5-14.5)
[2019-06-30 05:10] LABS: ANION GAP 7 (8-16); BLOOD UREA NITROGEN 10 MG/DL (7-18); BUN/CREATININE RATIO 12.3 (6.6-38.0); CALCIUM 7.3 MG/DL (8.5-10.1); CHLORIDE 106 MMOL/L (99-107); CREATININE 0.81 MG/DL (0.40-0.90); GLUCOSE 95 MG/DL (70-104); POTASSIUM 4.6 MMOL/L (3.5-5.1); SODIUM 136 MMOL/L (135-145); TOTAL CARBON DIOXIDE 22.7 MMOL/L (24-32); eGFR 69 ML/MIN
--- NOTE | 2019-06-30 06:00 | NUR ---
Problems reprioritized. Patient report given, questions answered & plan of care reviewed with FRIEDA Mccartney. Addendum: 06/30/19 at 0622 by Mike Bah RN Problems reprioritized. Patient report given, questions answered & plan of care reviewed with FRIEDA Saini.
--- NOTE | 2019-06-30 06:28 | NUR ---
Patient in room [facility]. I have received report from FRANCIS GREENWOOD RN and had the opportunity to ask questions and assume patient care.
[2019-06-30 06:58] VITALS: BP 125/56
[2019-06-30] MEDS: heparin, porcine 5000 units/ml vial SQ SCH ×2 (07:48→19:46)
[2019-06-30 11:43] VITALS: BP 144/70
[2019-06-30] MEDS: potassium Cl 20mEq in NS 1,000 ML IV SCH (12:50)
[2019-06-30] MEDS ORDERED: HYDROcodone/acetaminophen 5mg/325mg tablet PO PRN (16:05)
[2019-06-30] MEDS: potassium CL 20mEq in D5-1/2NS 1,000 ML IV SCH (17:20)
--- NOTE | 2019-06-30 18:28 | NUR ---
Problems reprioritized. Patient report given, questions answered & plan of care reviewed with FRIEDA Blankenship.
[2019-06-30 18:30] VITALS: BP 126/92
--- NOTE | 2019-06-30 18:38 | NUR ---
Patient in room [facility]. I have received report from Julia MALAVE and had the opportunity to ask questions and assume patient care.
--- NOTE | 2019-06-30 19:50 | NUR ---
At beginning of shift, patient had been on the BSC. Only a few drops came out. PVR was 134, Patient voided 400 later with PVR of 299. Patient bladder scanned at 0400am amd 868cc in bladder. Pt. got up to BSC and voided only 140. At this time 16french F/c inserted. Patient tolerated well.
[2019-07-01] VITALS: BP 133/75
[2019-07-01] MEDS: potassium CL 20mEq in D5-1/2NS 1,000 ML IV SCH ×3 (02:10→15:09)
[2019-07-01] MEDS: carbidoba-levodopa 25-100mg tablet PO SCH ×6 (04:52→23:16)
[2019-07-01 05:00] LABS: BASOPHILS % (AUTO) 0.6 % (0-1); EOSINOPHILS # (AUTO) 0.3 X10'3 (0-0.9); HEMATOCRIT 31.7 % (35.0-45.0); HEMOGLOBIN 10.8 g/dl (12.0-16.0); LYMPHOCYTES # (AUTO) 0.5 X10'3 (1.1-4.8); LYMPHOCYTES % (AUTO) 12.2 % (21-51); MEAN CORPUSCULAR HEMOGLOBIN 32.7 PG (27.0-31.0); MEAN CORPUSCULAR HGB CONC 33.9 g/dL (33.0-36.5); MEAN CORPUSCULAR VOLUME 96.3 FL (78-98); MEAN PLATELET VOLUME 7.8 FL (7.4-10.4); MONOCYTES # (AUTO) 0.3 X10'3 (0-0.9); MONOCYTES % (AUTO) 6.5 % (2-12); NEUTROPHILS # (AUTO) 3.1 X10'3 (1.8-7.7); NEUTROPHILS % (AUTO) 74.7 % (42-75); PLATELET COUNT 232 X10'3 (140-440); RED BLOOD COUNT 3.29 X10'6 (4.20-5.60); RED CELL DISTRIBUTION WIDTH 14.1 % (11.5-14.5); WHITE BLOOD COUNT 4.2 X10'3 (4.5-11.0)
[2019-07-01 05:20] LABS: ALBUMIN 1.9 G/DL (3.4-5.0); ANION GAP 10 (8-16); BLOOD UREA NITROGEN 6 MG/DL (7-18); BUN/CREATININE RATIO 9.4 (6.6-38.0); CALCIUM 7.5 MG/DL (8.5-10.1); CHLORIDE 104 MMOL/L (99-107); CREATININE 0.64 MG/DL (0.40-0.90); GLUCOSE 104 MG/DL (70-104); POTASSIUM 4.5 MMOL/L (3.5-5.1); SODIUM 134 MMOL/L (135-145); TOTAL CARBON DIOXIDE 19.8 MMOL/L (24-32); eGFR 90 ML/MIN
--- NOTE | 2019-07-01 06:00 | NUR ---
Patient in room [facility]. I have received report from JARRETT MALAVE and had the opportunity to ask questions and assume patient care.
--- NOTE | 2019-07-01 06:30 | NUR ---
Problems reprioritized. Patient report given, questions answered & plan of care reviewed with Negrita MALAVE.
[2019-07-01] MEDS: heparin, porcine 5000 units/ml vial SQ SCH ×2 (07:21→19:57)
[2019-07-01] MEDS: HYDROcodone/acetaminophen 5mg/325mg tablet PO PRN ×2 (08:14→23:18)
--- NOTE | 2019-07-01 08:15 | NUR ---
gave patient a norco 5. watched her swallow it
[2019-07-01 08:33] VITALS: BP 116/62
[2019-07-01 11:00] VITALS: BP 88/46
--- NOTE | 2019-07-01 13:20 | NUR ---
Wound care POC. Arrived at bedside to assess ostomy as wound care consult was sent for troubleshooting of keeping bag intact. No bag present upon assessment. Stoma presents moist and pink with some edema noted. Cleansed skin with wound cleanser and saline and dried. Used stoma powder and skin prep to create crust x2 layers and placed ostomy bag. Will follow as needed.
--- NOTE | 2019-07-01 13:41 | NUR ---
reassessment: Pt PO 25-50% avg full liquids post-op. Lots of flatus out of ileostomy w/ 400ml output documented. Per MD note; pending bowel function return prior to transfer back to [facility]. Receiving electroyte replacements per protocol. Ensure high protein TIDWM added pending MD verification prior to sending on trays. Will monitor for diet advancement and additional protein needs post-op. Rec: 1. advance diet per MD to low-residue 2. ensure high protein TIDWM; pend MD verification prior to d/c 3. MVI for wounds per MD approval 4. weekly wts Addendum: 07/01/19 at [address] Amended: Links added.
--- NOTE | 2019-07-01 16:39 | NUR ---
Patient complained of bladder distention despite alston catheter with minimal output noted. With direction from RNNegrita, did a bladder scan under male due to hysterectomy. Result; 78mL. Primary nurse notified of result.
--- NOTE | 2019-07-01 17:33 | NUR ---
PT HAS HAD 5 ILIEOSTOMY BAG CHANGES SINCE THE BEGINNING OF MY SHIFT. WOUND CARE WAS CONSULTED ON THE 4TH CHANGE, IT WOULD NOT STAY ON EITHER. CHARGE NURSE AND I PUT ANOTHER ONE ON, THUS FAR IT IS SECURE.
--- NOTE | 2019-07-01 17:49 | NUR ---
Student Medication Administration: For this medication-pass time frame, all medication were reviewed, dispensed, administered and documented per hospital policy by Joe Student Nurse.
--- NOTE | 2019-07-01 17:54 | NUR ---
Student documentation: I have reviewed interventions, assessments performed and documented by Joe Student Nurse.
[2019-07-01 18:00] VITALS: BP 104/82
[2019-07-01] MEDS ORDERED: lactose-reduced food (Ensure High Protein) 237ml bottle PO SCH (18:00)
--- NOTE | 2019-07-01 18:46 | NUR ---
Patient in room [facility]. I have received report from FRIEDA Rees and had the opportunity to ask questions and assume patient care. Addendum: 07/01/19 at 1846 by Lis Warren RN Amended: Links added.
[2019-07-01 23:28] VITALS: BP 97/58
[2019-07-02] MEDS: potassium CL 20mEq in D5-1/2NS 1,000 ML IV SCH (00:52)
[2019-07-02] MEDS: carbidoba-levodopa 25-100mg tablet PO SCH (02:57)
[2019-07-02 06:08] LABS: BASOPHILS % (AUTO) 0.6 % (0-1); EOSINOPHILS # (AUTO) 0.2 X10'3 (0-0.9); HEMATOCRIT 31.2 % (35.0-45.0); HEMOGLOBIN 10.5 g/dl (12.0-16.0); LYMPHOCYTES # (AUTO) 0.5 X10'3 (1.1-4.8); LYMPHOCYTES % (AUTO) 11.1 % (21-51); MEAN CORPUSCULAR HEMOGLOBIN 32.3 PG (27.0-31.0); MEAN CORPUSCULAR HGB CONC 33.7 g/dL (33.0-36.5); MEAN CORPUSCULAR VOLUME 95.7 FL (78-98); MEAN PLATELET VOLUME 8.2 FL (7.4-10.4); MONOCYTES # (AUTO) 0.4 X10'3 (0-0.9); MONOCYTES % (AUTO) 8.9 % (2-12); NEUTROPHILS # (AUTO) 3.6 X10'3 (1.8-7.7); NEUTROPHILS % (AUTO) 74.4 % (42-75); PLATELET COUNT 261 X10'3 (140-440); RED BLOOD COUNT 3.26 X10'6 (4.20-5.60); RED CELL DISTRIBUTION WIDTH 13.2 % (11.5-14.5); WHITE BLOOD COUNT 4.8 X10'3 (4.5-11.0)
[2019-07-02 06:10] LABS: ALBUMIN 1.9 G/DL (3.4-5.0); ANION GAP 10 (8-16); BLOOD UREA NITROGEN 5 MG/DL (7-18); BUN/CREATININE RATIO 7.8 (6.6-38.0); CALCIUM 7.2 MG/DL (8.5-10.1); CHLORIDE 98 MMOL/L (99-107); CREATININE 0.64 MG/DL (0.40-0.90); GLUCOSE 88 MG/DL (70-104); POTASSIUM 4.7 MMOL/L (3.5-5.1); SODIUM 130 MMOL/L (135-145); TOTAL CARBON DIOXIDE 21.9 MMOL/L (24-32); eGFR 90 ML/MIN
--- NOTE | 2019-07-02 06:25 | NUR ---
Problems reprioritized. Patient report given, questions answered & plan of care reviewed with FRIEDA Rees.
--- NOTE | 2019-07-02 07:00 | NUR ---
PT IS HAVING DIFFICULTY WITH HER PARKINSON'S THIS MORNING. SHE IS QUITE SHAKY. SHE ALSO STATES THAT SHE GET HER MEDS DIFFERENTLY AT HOME. I AM HOLDING HER MEDS UNTIL I CAN REACH HER PRIMARY DOCTOR. CHARGE HAS BEEN INFORMED.
[2019-07-02 07:45] VITALS: BP 188/80
--- NOTE | 2019-07-02 10:20 | NUR ---
Wound care POC. Arrived at bedside for assessment of ostomy. Pt states the bag remains intact at this time.
--- NOTE | 2019-07-02 10:29 | NUR ---
BONNIE VICTOR PER DR BETH. STUDENT ADMIN
[2019-07-02 11:00] VITALS: BP 111/54
--- NOTE | 2019-07-02 12:00 | NUR ---
Patient in room [facility]. I have received report from SN Oli, and had the opportunity to ask questions and assume patient care.
[2019-07-02] MEDS: heparin, porcine 5000 units/ml vial SQ SCH (12:24)
--- NOTE | 2019-07-02 13:10 | NUR ---
With assistance from FRIEDA Waters, discontinued IV per discharge orders. Catheter tip intact. Patient tolerated well.
--- NOTE | 2019-07-02 17:23 | NUR ---
Student documentation: I have reviewed and all interventions, assessments performed and documented by Zainab GREGORY.
== END 2019-07-02 14:00 | DRG 331 ==
LOC: SUR 3N 18:32
PROVIDERS: ADMIT Surgery; ATTEND Surgery
PROC: 0DTE0ZZ Resection of Large Intestine, Open Approach (ICD-10-PCS; 2019-06-28)
PROC: 3E0T3BZ Introduction of Anesthetic Agent into Peripheral Nerves and Plexi, Percutaneous Approach (ICD-10-PCS; 2019-06-28)
PROC: 3E0T33Z Introduction of Anti-inflammatory into Peripheral Nerves and Plexi, Percutaneous Approach (ICD-10-PCS; 2019-06-28)
PROC: 0D1B0Z4 Bypass Ileum to Cutaneous, Open Approach (ICD-10-PCS; principal; 2019-06-28 09:06)
DX: K59.8 Other specified functional intestinal disorders (principal); G20 Parkinson's disease; K59.39 Other megacolon; Z79.899 Other long term (current) drug therapy
CPT/HCPCS: 36415; 80047; 80048; 85025; 85610; 85730; 87081; 88307; 93005; 97110; 97116; 97161; 97530; 99285; A4215; A4421; A4618; A7000; C1758; G0378; J0360; J0694; J1100; J1644; J2001; J2270; J2405; J2704; J2710; J2795; J3010; J3480; J3490; J7120

== ENCOUNTER 2019-07-02 21:35 | Emergency (ER) | payer MEDICARE, BC ==
[~2019-07-02] VITALS: Ht 162.6 cm; Wt 52.3 kg
--- NOTE | 2019-07-02 22:20 | NUR ---
PREVIOUS COLOSTOMY BAG REMOVED FOR DR. WATERS TO EXAMINE STOMA. NEW COLOSTOMY BAG PLACED.
--- NOTE | 2019-07-02 22:34 | NUR ---
[facility] CARGO CALLED TO ARRANGE TRANSPORTATION BACK TO [facility].
[2019-07-02 22:35] VITALS: BP 107/58
--- NOTE | 2019-07-02 22:41 | NUR ---
CALLED REPORT TO KEANU MALAVE AT [facility] WHERE PT IS DISCHARGING BACK TO. SHE HAD NO FURTHER QUESTIONS. INFORMED HER PT WILL BE ARRIVING BACK VIA [facility] "IN ABOUT AN HOUR" THAT WAS THE REPORT WE RECEIVED FROM [facility]. SHE RESPONDED "OKAY THANKS."
== END 2019-07-02 23:31 | disposition home or self-care (01) ==
LOC: ER 21:36
DX: K94.02 Colostomy infection (principal); G20 Parkinson's disease; Z90.710 Acquired absence of both cervix and uterus; Z90.49 Acquired absence of other specified parts of digestive tract; Z90.5 Acquired absence of kidney; Z79.899 Other long term (current) drug therapy
CPT/HCPCS: 99283